=== PATIENT | female | born 1990 | race Caucasian/White ===

== ENCOUNTER 2017-06-28 13:17 | Emergency (ER) | payer BC ==
--- NOTE | 2017-06-28 13:41 | UC ---
Complaint Female HPI - HPI Summary HPI Summary: 26 y/o female presents to the urgent care c/o burning and fervency on urination for the past 2 days. Pt started to take Azo yesterday to alleviate symptoms. Pt states she had UTI in the pst and symptoms feel very similar. Pt denies fever, pelvic pain, vaginal discharge. abdominal pain, N/V/D, Hx of STD. LMP: 3 years ago with the IUD. - History Of Current Complaint Stated Complaint: URINARY COMPLAINT Time Seen by Provider: 06/28/17 13:39 Hx Obtained From: Patient Hx Last Menstrual Period: 3 years ago on IUD ?: No Onset/Duration: Gradual Onset, Lasting Days - 2 days, Still Present Timing: Intermittent Severity Initially: Mild Severity Currently: Moderate Pain Intensity: 5 Pain Scale Used: 0-10 Numeric Character: Burning Aggravating Factor(s): Urination Alleviating Factor(s): Meds Associated Signs And Symptoms: Positive: Negative. Negative: Fever, Back Pain, Vaginal Discharge - Risk Factors Ectopic Risk Factor: Negative Ovarian Torsion Risk Factor: Negative - Allergies/Home Medications Allergies/Adverse Reactions: Allergies Allergy/AdvReac Type Severity Reaction Status Date / Time No Known Allergies Allergy Verified 06/28/17 13:42 PMH/Surg Hx/FS Hx/Imm Hx Previously Healthy: Yes - Pt denies PMHX - Family History Known Family History: Positive: Diabetes - Social History Occupation: Employed Full-time Lives: With Family Review of Systems Constitutional: Negative Skin: Negative Eyes: Negative ENT: Negative Respiratory: Negative Cardiovascular: Negative Gastrointestinal: Negative Genitourinary: Dysuria, Frequency Motor: Negative Neurovascular: Negative Musculoskeletal: Negative Neurological: Negative Psychological: Negative Is Patient Immunocompromised?: No All Other Systems Reviewed And Are Negative: Yes Physical Exam Triage Information Reviewed: Yes - Additional Comments VITAL SIGNS: Reviewed. GENERAL: Patient is a well developed and nourished female who is sitting comfortable in the examining table. Patient is not in any acute respiratory distress. HEAD AND FACE: No signs of trauma. No ecchymosis, hematomas or skull depressions. No sinus tenderness. EYES: PERRLA, EOMI x 2, No injected conjunctiva, clear watery eyes, no nystagmus. No photophobia. EARS: Hearing grossly intact. Ear canals and tympanic membranes are within normal limits. MOUTH: pharynx with no erythema, no exudates,no palatal petechiae. no B/L tonsillar enlargement Uvula in midline. NECK: Supple, trachea is midline, no lymphadenopathy, no JVD, no carotid bruit, no c-spine tenderness, neck with full ROM. CHEST: Symmetric, no tenderness at palpation LUNGS: Clear to auscultation bilaterally. No wheezing or crackles. CVS: Regular rate and rhythm, S1 and S2 present, no murmurs or gallops appreciated. ABDOMEN: Soft, non-tender. No signs of distention. No rebound no guarding, and no masses palpated. Bowel sounds are normal. BACK:no scoliosis or lesions, non tender to palaption, No B/L CVA tenderness EXTREMITIES: FROM in all major joints, no edema, no cyanosis or clubbing. NEURO: Alert and oriented x 3. No acute neurological deficits. Speech is normal and follows commands. SKIN: Dry and warm Complaint Female Dx - Course Course Of Treatment: 26 y/o female presents to the urgent care c/o burning and fervency on urination for the past 2 days. Pt started to take Azo yesterday to alleviate symptoms. Pt states she had UTI in the pst and symptoms feel very similar. Pt denies fever, pelvic pain, vaginal discharge. abdominal pain, N/V/D , Hx of STD. LMP: 3 years ago with the IUD. Hx obtained. PE: WNL. Pt took Azo to alleviate symptoms, unable to perform UA. Urine sent for culture to r/o UTI. Pt will be Tx prophylactically. Pt Rx Macrobid 100mg PO x 5 days. Advised to continue taking Pyridium 100mg PO TID x 2 days. Advised to increase fluid intake. Pt will be notified if any abnormality or to stop ABX. Pt advised If symptoms do not improve to return to the urgent care or f/u with PCP. Pt understood and agreed with D/C instructions. Left the clinic ambulating. - Differential Dx/Diagnosis Differential Diagnosis/HQI/PQRI: Cervicitis, Renal Colic, Sexually Transmitted Disease, Ureteral Stone, Urinary Tract Infection Provider Diagnoses: 1- Dysuria. 2- UTI Discharge - Discharge Plan Condition: Stable Disposition: HOME Prescriptions: Nitrofurantoin Monohyd Macro [Macrobid] 100 mg PO BID #10 cap Patient Education Materials: Urinary Tract Infection in Women (ED) Referrals: No Primary Care Phys,NOPCP [Primary Care Provider] - [facility] [Outside] - If Needed Additional Instructions: 1- Please take Macrobid 100mg PO x 5 days. Continue taking Pyridium 100 mg PO TID x 2 days to alleviate urinary symptoms. Increase increase fluid intake. drink cranberry juice. 2-Urine sent for culture since unable to perform UA. If any abnormality, you will be notified for further treatment. 3-If symptoms do not improve please return to the urgent care or f/u with her PCP.
[2017-06-28 13:42] VITALS: BP 118/75
--- NOTE | 2017-07-01 07:17 | UC ---
Progress - Progress Note Progress Note: NO CHANGE
== END 2017-06-28 14:00 | disposition home or self-care (01) ==
LOC: UCCORT 13:17
DX: N39.0 Urinary tract infection, site not specified (principal); B96.20 Unspecified Escherichia coli [E. coli] as the cause of diseases classified elsewhere; Z87.440 Personal history of urinary (tract) infections
CPT/HCPCS: 87077; 87086; 87186; 99202; G0463